=== PATIENT | male | born 1950 | race Caucasian/White ===

== ENCOUNTER 2018-05-01 15:48 | Emergency (ER) | payer MEDICARE, OTHER ==
[~2018-05-01] VITALS: Ht 165.1 cm; Wt 75.0 kg
[2018-05-01 15:57] LABS: GLUCOSE,POINT OF CARE 94 MG/DL (70-110)
[2018-05-01] MEDS ORDERED: ERGO500014 PO (15:57)
[2018-05-01] MEDS ORDERED: ASPI81 PO (15:57)
[2018-05-01] MEDS ORDERED: GABA-531 PO (15:57)
[2018-05-01] MEDS ORDERED: FERR-89 PO (15:57)
[2018-05-01] MEDS ORDERED: CARB200T6 PO (15:57)
[2018-05-01] MEDS ORDERED: SILD25 PO (15:57)
[2018-05-01] MEDS ORDERED: IBUP-2071 PO (15:57)
[2018-05-01] MEDS ORDERED: SIMV-261 PO (15:57)
[2018-05-01] MEDS ORDERED: LEVO50 PO (15:57)
[2018-05-01] MEDS ORDERED: OMEP20 PO (15:57)
[2018-05-01] MEDS ORDERED: LOSA50TA37 PO (15:57)
[2018-05-01] MEDS ORDERED: METF500T6 PO (15:57)
[2018-05-01] MEDS ORDERED: DULO60CA44 PO (15:57)
[2018-05-01 16:44] LABS: BASOPHILS % (AUTO) 2.1 % (0.0-2.0); EOSINOPHILS % (AUTO) 4.5 % (1.0-6.0); HEMATOCRIT 39.9 % (41-53); HEMOGLOBIN 14.1 g/dL (13.5-17.5); LYMPHOCYTES # (AUTO) 2.7 K/uL (1.0-4.8); LYMPHOCYTES % (AUTO) 46.4 % (22.0-44.0); MEAN CORPUSCULAR HEMOGLOBIN 33.8 pg (26.0-34.0); MEAN CORPUSCULAR HGB CONC 35.4 G/dL (31.0-37.0); MEAN CORPUSCULAR VOLUME 96 fL (80-100); MONOCYTES # (AUTO) 0.6 K/uL (0.1-1.0); NEUTROPHILS # (AUTO) 2.1 K/uL (1.8-7.7); PLATELET COUNT (AUTO) 347 K/uL (150-450); RED BLOOD CELL COUNT(AUTO) 4.18 MIL/uL (4.50-5.90); RED CELL DISTRIBUTION WIDTH 12.9 % (11.5-14.5)
[2018-05-01 16:55] LABS: ANION GAP 9 mmol/L (8-16); CALCIUM, TOTAL 8.8 mg/dL (8.8-10.5); CARBON DIOXIDE 26 mmol/L (22-29); CHLORIDE 95 mmol/L (98-107); CREATININE 0.83 mg/dL (0.60-1.30); GLOMERULAR FILTR. RATE CALC > 60 mL/min (>60); GLUCOSE,RANDOM 97 mg/dL (70-110); POTASSIUM 4.6 mmol/L (3.5-5.1); SODIUM SERUM 130 mmol/L (136-145); UREA NITROGEN, BLOOD 16 mg/dL (7-18)
[2018-05-01 17:00] LABS: ALANINE AMINOTRANSFERASE 45 U/L (12-78); ALKALINE PHOSPHATASE 56 U/L (46-116); ASPARTATE AMINOTRANSFERASE 31 U/L (15-37); BILIRUBIN,TOTAL 0.5 mg/dL (0.1-1.0); TOTAL PROTEIN, SERUM 7.8 g/dL (6.4-8.2)
[2018-05-01 18:07] VITALS: BP 110/84
== END 2018-05-01 18:28 | disposition home or self-care (01) ==
LOC: EMS 15:50
DX: G56.32 Lesion of radial nerve, left upper limb (principal); E11.9 Type 2 diabetes mellitus without complications; I10 Essential (primary) hypertension; F17.210 Nicotine dependence, cigarettes, uncomplicated
CPT/HCPCS: 70450; 99285